=== PATIENT | male | born 1965 | race Caucasian/White ===

== ENCOUNTER 2023-11-05 19:17 | Emergency (ER) | payer OTHER ==
[~2023-11-05] VITALS: Ht 175.3 cm; Wt 99.8 kg
[2023-11-05] MEDS: IV NS 0.9% 1,000 ML BAG IV ONE (19:30)
--- NOTE | 2023-11-05 19:32 | NUR ---
[id number] FROM HOME FOR DIZZINESS S/P ETOH, PLACED TO BED AND HOOKED INTO A MONITOR
--- NOTE | 2023-11-05 19:40 | NUR ---
INSERTED IV CANNULA G22 R HAND, BLOOD DRAWN SENT TO LAB.
[2023-11-05 20:04] LABS: BASOPHILS # (AUTO) 0.1 K/uL (0.0-0.2); BASOPHILS % (AUTO) 1.2 % (0.0-2.0); EOSINOPHILS # (AUTO) 0.4 K/uL (0.0-0.7); HEMATOCRIT 45 % (39-51); HEMOGLOBIN 15.2 g/dL (13.5-17.5); LYMPHOCYTES # (AUTO) 1.8 K/uL (0.8-4.8); LYMPHOCYTES % (AUTO) 21.4 % (20.0-44.0); MEAN CORPUSCULAR HEMOGLOBIN 31 PG (26.0-33.0); MEAN CORPUSCULAR HGB CONC 34 g/dl (31.0-36.0); MEAN CORPUSCULAR VOLUME 92 fL (80-96); MONOCYTES # (AUTO) 0.4 K/uL (0.1-1.30); MONOCYTES % (AUTO) 5.3 % (2.0-12.0); NEUTROPHILS # (AUTO) 5.6 K/uL (1.8-8.9); NEUTROPHILS % (AUTO) 67.1 % (43.0-81.0); PLATELET COUNT (AUTO) 193 K/uL (150-450); RED BLOOD CELL COUNT(AUTO) 4.87 MIL/uL (4.5-6.0); RED CELL DISTRIBUTION WIDTH 13.4 % (11.5-15.0); WHITE BLOOD COUNT (AUTO) 8.3 K/uL (4.3-11.0)
[2023-11-05 20:12] LABS: CALCIUM, SERUM 9.2 mg/dL (8.5-10.1); CREATININE 0.9 mg/dL (0.6-1.3); POTASSIUM 4.3 mmol/L (3.5-5.1)
--- NOTE | 2023-11-05 20:55 | NUR ---
iv cannula removed
[2023-11-05 21:04] VITALS: BP 121/74; TEMP 98.2; O2SAT 98
--- NOTE | 2023-11-05 21:04 | NUR ---
Patient discharged to home in stable condition. Written and verbal after care instructions given. Patient verbalizes understanding of instruction.
== END 2023-11-05 21:05 | disposition home or self-care (01) ==
LOC: ER 19:26
DX: F43.20 Adjustment disorder, unspecified (principal); R42 Dizziness and giddiness; E86.0 Dehydration; E11.9 Type 2 diabetes mellitus without complications; E78.5 Hyperlipidemia, unspecified
CPT/HCPCS: 99284; 96360; 93005; 85025; 80048; 36415; J7030; A4223